=== PATIENT | male | born 1995 | race Two or more races ===

== ENCOUNTER 2017-07-18 13:23 | Emergency (ER) | payer OTHER ==
[~2017-07-18] VITALS: Ht 172.7 cm; Wt 60.9 kg
[~2017-07-18 13:23] MED LIST: RISPERDAL1 MG PO; RISPERDAL2 MG PO; RISPERIDONE1 MG PO; TRILEPTAL150 MG PO; TRILEPTAL300 MG PO; TRILEPTAL600 MG PO; XANAX0.5 MG PO
[2017-07-18 14:36] LABS: APPEARANCE CLEAR ((CLEAR)); BILIRUBIN NEGATIVE; BLOOD MODERATE; COLOR AMBER ((YELLOW)); GLUCOSE (STRIP) NEGATIVE; KETONES 5; LEUKOCYTES NEGATIVE; NITRITE NEGATIVE; PROTEIN (STRIP) 30; SPECIFIC GRAVITY 1.029 (1.000-1.030)
[2017-07-18 14:38] LABS: BASOPHIL (%) 0.4 % (0-1); EOSINOPHIL (%) 0 % (0-5); HEMATOCRIT 50.8 % (38.0-50.0); HEMOGLOBIN 18.2 G/DL (12.5-16.6); IMMATURE GRANULOCYTE (%) 0.3 % (0.0-0.7); LYMPHOCYTE (%) 19.4 % (15-42); LYMPHOCYTE COUNT 1.5 K/uL (1.0-2.8); MCH 30.1 PG (29.0-34.0); MCHC 35.8 G/DL (30.0-36.0); MONOCYTE (%) 7.6 % (3-12); MONOCYTE COUNT 0.6 K/uL (0-0.8); NEUTROPHIL (%) 72.3 % (45-76); NEUTROPHIL COUNT 5.6 K/uL (1.8-6.4); PLATELET COUNT 238 K/uL (156-360); RBC DIS.WIDTH-CV 11.7 % (11.8-14.6); RBC DIS.WIDTH-SD 35.5 % (39-53); RED BLOOD COUNT 6.05 M/uL (4.00-5.50); WHITE BLOOD COUNT 7.7 K/uL (4.1-10.2)
[2017-07-18 14:40] LABS: BACTERIA NONE SEEN /HPF; EPITHELIAL CELLS NONE SEEN /HPF; MUCUS 2+ /LPF; RED BLOOD CELLS 0-5 /HPF (0-5); UCUL ADDED? NO; WHITE BLOOD CELLS 0-5 /HPF (0-5)
[2017-07-18 14:44] LABS: ALBUMIN 5.1 g/dL (3.2-4.8)
[2017-07-18 14:45] LABS: CHLORIDE 101 mEq/L (99-109); POTASSIUM 3.9 mEq/L (3.7-5.4); SODIUM 140 mEq/L (136-147)
[2017-07-18 14:47] LABS: GLUCOSE 110 mg/dL (70-99)
[2017-07-18 14:49] LABS: TOTAL BILIRUBIN 1.8 mg/dL (0.0-1.0)
[2017-07-18 14:50] LABS: ALKALINE PHOSPHATASE 266 IU/L (3-129)
[2017-07-18 14:51] LABS: CREATININE 1.1 mg/dL (0.6-1.3); GFR ESTIMATE (CALCULATED) > 59 mL/min/ (58.99-99999)
[2017-07-18 14:52] LABS: AST (GOT) 15 IU/L (2-34); UREA NITROGEN (BUN) 22 mg/dL (9-23)
[2017-07-18 14:53] LABS: ALT (GPT) 14 IU/L (3-49)
[2017-07-18 14:54] LABS: LIPASE 8 U/L (1.0-51.0)
[2017-07-18] MEDS ORDERED: FLEET ENEMA-AD118 ML PR (17:43)
[2017-07-18] MEDS ORDERED: MIRALAX255 GM PO (17:43)
[2017-07-18 18:33] VITALS: BP 119/63
== END 2017-07-18 18:35 | disposition home or self-care (01) ==
LOC: EME 13:23
PROVIDERS: Emergency Medicine
PROC: 0T9B70Z Drainage of Bladder with Drainage Device, Via Natural or Artificial Opening (ICD-10-PCS; principal; 2017-07-18)
DX: R33.9 Retention of urine, unspecified (principal); K59.00 Constipation, unspecified; J45.909 Unspecified asthma, uncomplicated
CPT/HCPCS: 74177; 80053; 81003; 83690; 85025; 99281; 99285; J2250